=== PATIENT | female | born 1995 | race Caucasian/White ===

== ENCOUNTER 2017-04-23 21:04 | Emergency (ER) | payer OTHER ==
[~2017-04-23] VITALS: Ht 160 cm; Wt 54.4 kg
[2017-04-23] MEDS ORDERED: PRENATAL MULTI1 EAC3 (21:20)
== END 2017-04-23 22:05 | disposition home or self-care (01) ==
LOC: SED 21:04
DX: J02.9 Acute pharyngitis, unspecified (principal); H92.09 Otalgia, unspecified ear; F41.9 Anxiety disorder, unspecified; F17.210 Nicotine dependence, cigarettes, uncomplicated
CPT/HCPCS: 87651; 99283